=== PATIENT | male | born 1985 | race African-American/Black ===

== ENCOUNTER 2017-05-27 23:51 | Emergency (ER) | payer BC, OTHER ==
--- NOTE | ~2017-05-27 | CR141 ---
[facility] A Service of [facility] & [facility] RADIOLOGY TEXT RESULTS PATIENT: ALMA DELIA SANZ LOCATION: SED : 81 UNIT #: [id number] AGE: [address]: JAH GALLOWAY SEX: M ORDER DR: [id number] [place] [id number] E MR#: [id number] Acc #: [id number] NAME: ALMA DELIA SANZ : 1985 SEX: M STUDY DATE/TIME: 05/28/2017 1:19 UNIT: SED ROOM: STUDY DESCRIPTION: CR Hand Min 3 Views Lt Attending Physician: Jah Galloway Aprn Ordering Physician: Jah Galloway Aprn Primary Care Physician: No Primary Care Physician MEDICAL IMAGING REPORT This report is preliminary unless electronic signature is present. EXAM Left hand HISTORY Left hand trauma and pain. Laceration to side of hand. Evaluate for foreign body. This happened to just prior to administration. FINDINGS 3 views of the left and were obtained. There appears to be soft tissue injury involving the thumb side and the fifth finger side of the hand. There is no foreign body. The bones are normal. There is no fracture. IMPRESSION 1. There is no fracture or foreign body. 2. There appears to be some soft tissue injury on the lateral and medial sides of the hand. Dictated by... Nitesh Boswell M.D. THIS IS AN ELECTRONICALLY VERIFIED REPORT Nitesh Boswell M.D. at 05/28/2017 1:42 PM AMAURY/lorene TD: 05/28/2017 13:28 JOB #: [id number] MEDICAL IMAGING REPORT Page 1 of 1
[2017-05-28] MEDS ORDERED: CHOLESTEROL MED (00:08)
[2017-05-28] MEDS ORDERED: ALLERGY MED (00:08)
== END 2017-05-28 03:35 | disposition home or self-care (01) ==
LOC: SED 23:51
DX: S61.412A Laceration without foreign body of left hand, initial encounter (principal); W45.8XXA Other foreign body or object entering through skin, initial encounter; Y92.009 Unspecified place in unspecified non-institutional (private) residence as the place of occurrence of the external cause
CPT/HCPCS: 12002; 73130; 99283